=== PATIENT | female | born 1975 | race Caucasian/White ===

== ENCOUNTER 2023-05-30 09:13 | Day surgery (SDC) | payer OTHER ==
[2023-05-28 15:45] VITALS: BMI 39.4
[2023-05-30] MEDS ORDERED: Neomycin-Polymyxin 1 ML AMP ONE (10:53)
[2023-05-30] MEDS ORDERED: Bupivacaine PF 0.5% 30 ML VIAL ONE (10:53)
[2023-05-30] MEDS ORDERED: PROPOFOL 20 ML ONE (11:47)
[2023-05-30] MEDS ORDERED: Dexamethasone 4 mg/ml Vial ONE (11:47)
[2023-05-30] MEDS ORDERED: Ondansetron PF 4 MG/2 ML Vial ONE (11:47)
[2023-05-30] MEDS ORDERED: Fentanyl 250 MCG/5 ML VIAL ONE (11:47)
[2023-05-30] MEDS ORDERED: Lidocaine 1% PF 5 ML VIAL ONE (11:47)
[2023-05-30] MEDS ORDERED: Promethazine HCl 25 MG/ML VIAL ONE (11:52)
[2023-05-30] MEDS ORDERED: ePHEDrine Sulfate 50 MG/10 ML VIAL ONE (12:13)
[2023-05-30] MEDS ORDERED: Ketorolac Tromethamine 30 MG/ML VIAL ONE (12:21)
== END 2023-05-30 13:40 | disposition home or self-care (01) ==
LOC: CSHSDC 09:13
PROVIDERS: ATTEND Podiatrist Foot & Ankle Surgery
PROC: 0LBV0ZZ Excision of Right Foot Tendon, Open Approach (ICD-10-PCS; principal; 2023-05-30)
DX: M67.471 Ganglion, right ankle and foot (principal); E78.00 Pure hypercholesterolemia, unspecified; I10 Essential (primary) hypertension; E11.21 Type 2 diabetes mellitus with diabetic nephropathy; Z88.2 Allergy status to sulfonamides; Z79.899 Other long term (current) drug therapy; Z79.84 Long term (current) use of oral hypoglycemic drugs
CPT/HCPCS: 88304; J1100; J1885; J2405; J2550; J2704; J3010; S0020